=== PATIENT | female | born 1995 | race Caucasian/White ===

== ENCOUNTER 2019-05-23 18:12 | Emergency (ER) | payer SELFPAY ==
[2019-05-23 18:38] VITALS: BP 131/62; PULSE 64; RESP 20; TEMP 37.3; O2SAT 99
[2019-05-23 19:02] LABS: Glucose Point of Care 78 (65-105)
--- NOTE | 2019-05-23 19:19 | ED.GENADULT ---
HPI - General Adult General Chief complaint: Altered Mental Status Stated complaint: slight memory loss Time Seen by Provider: 05/23/19 19:19 Source: patient Mode of arrival: ambulatory Limitations: no limitations History of Present Illness HPI narrative: 23-year-old female patient presents to the [facility] with complaints of altered mental status and fogginess . Patient states that this morning she woke up just feeling very what she would describe as foggy . Patient states that she had an episode of what she thought might be food poisoning about 2 days ago. Patient states at that time she had some vomiting. Patient states that she did have a period a couple weeks ago denies any recent sexual intercourse. Patient denies any headaches, vision changes, numbness or tingling anywhere. Patient denies any injury to the head or hitting her head recently. Patient states that she does smoke cigarettes at times and does smoke marijuana at times. Patient cannot recall exactly when she last smoked marijuana but thinks it was maybe sometime last week. Patient states that she does not get her marijuana from the dispensary's. Patient denies any other drugs or alcohol at this time. 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 Patient denies any fevers, cough or chest pain. Related Data Home Medications Medication Instructions Recorded Confirmed No Home Medications 05/23/19 05/23/19 Allergies Allergy/AdvReac Type Severity Reaction Status Date / Time No Known Allergies Allergy Verified 05/23/19 19:19 Review of Systems Review of Systems: Narrative: CONSTITUTIONAL: Denies fever, chills, or sweats. EYES: Denies visual changes, redness, or discharge. ENT: Denies rhinorrhea, congestion, sore throat, or otalgia. CARDIOVASCULAR: Denies chest pain, palpitations, or edema. RESPIRATORY: Denies cough or dyspnea. GASTROINTESTINAL: Denies abdominal pain, nausea, vomiting, or diarrhea. GENITOURINARY: Denies dysuria or hematuria. SKIN: Denies rash or itching. MUSCULOSKELETAL: Denies back pain, joint pain, or myalgia. NEUROLOGIC: Denies headache, numbness, or weakness. Positive confusion PSYCHIATRIC: Denies anxiety or depression. PMFSH Comments At the time of my signature I agree with nursing past medical history, surgical, social, and family history. There is no relevant family history pertinent to the presenting complaint. Exam Narrative: Exam Narrative: GENERAL: Well-appearing, well-nourished, and in no acute distress. HEAD: Normocephalic, atraumatic. EYES: PERRLA and EOMI. ENT: Nares clear, no rhinorrhea or epistaxis. Mucous membranes moist. NECK: Supple. No lymphadenopathy CHEST: Clear to auscultation. No respiratory distress. HEART: Regular rate and rhythm. No murmur heard. Normal peripheral pulses. ABDOMEN: Soft, nontender, nondistended, normal active bowel sounds. EXTREMITIES: Normal range of motion. No edema. SKIN: Warm, dry, no rash. NEURO: Alert and oriented x4, GCS 15. Cranial nerves II through XII grossly intact. No focal neurological deficits. Normal muscle strength and tone. Normal deep tendon reflexes. Negative Babinski, normal finger to nose coordination he had normal heel to blount glide. Speech is clear. Normal gait. Negative Romberg and no pronator drift Course Vital Signs Vital signs: Vital Signs Temperature 37.3 C 05/23/19 18:38 Pulse Rate 64 05/23/19 18:38 Respiratory Rate 20 05/23/19 18:38 Blood Pressure 131/62 05/23/19 18:38 Pulse Oximetry 99 05/23/19 18:38 Temperature 37.3 C 05/23/19 18:38 Pulse Rate 64 05/23/19 18:38 Respiratory Rate 20 05/23/19 18:38 Blood Pressure 131/62 05/23/19 18:38 Pulse Oximetry 99 05/23/19 18:38 Vital signs reviewed. Medical Decision Making Differential Diagnosis Differential Diagnosis: Differential diagnosis: Migraine, cluster headache, tension headache, sinusitis, dental
== END 2019-05-23 19:48 | disposition home or self-care (01) ==
PROVIDERS: Emergency Provider Nurse Practitioner Family
DX: E86.0 Dehydration (principal); F05 Delirium due to known physiological condition; F17.210 Nicotine dependence, cigarettes, uncomplicated; F12.90 Cannabis use, unspecified, uncomplicated
CPT/HCPCS: 81003; 81025; 82948; 99203; G0463